=== PATIENT | female | born 1995 | race Caucasian/White ===

== ENCOUNTER 2018-01-22 22:06 | Inpatient (IN) | payer MEDICAID ==
[2018-01-22] MEDS ORDERED: LACTATED RINGER'S 1,000 ML IV (22:42)
[2018-01-22] MEDS ORDERED: OXYTOCIN 30 UNITS/LR 500 ML IV (23:00)
[2018-01-22] MEDS ORDERED: LIDOCAINE 1% (MPF) 30 ML INJ INJ (23:00)
[2018-01-22] MEDS ORDERED: METHYLERGONOVINE 0.2 MG INJ IM (23:00)
[2018-01-22] MEDS ORDERED: BUTORPHANOL 2 MG INJ IV (23:00)
[2018-01-22] MEDS ORDERED: MISOPROSTOL 200 MCG TAB PR (23:00)
[2018-01-22] MEDS ORDERED: CARBOPROST 250 MCG INJ IM (23:00)
[2018-01-22] MEDS: LACTATED RINGER'S 1,000 ML IV (23:24)
[2018-01-22 23:33] LABS: ADD MAN DIFF? NO
[2018-01-22 23:36] LABS: BASOPHILS % 0.4 % (0.0-2.0); EOSINOPHILS # 0.1 10^3/ul (0.0-0.5); HEMATOCRIT 33.7 % (37.0-47.0); HEMOGLOBIN 11.1 g/dl (12.0-16.0); LYMPHOCYTES # 1.8 10^3/ul (0.8-2.9); LYMPHOCYTES % 35.8 % (18.0-55.0); MEAN CORPUSCULAR HGB CONC 32.9 g/dl (32.0-37.0); MEAN CORPUSCULAR VOLUME 72.8 fl (72.0-104.0); MEAN PLATELET VOLUME 11.5 fl (7.4-10.4); MONOCYTE # 0.5 10^3/ul (0.3-0.9); MONOCYTES % 10.1 % (0.0-13.0); NEUTROPHIL # 2.6 10^3/ul (1.6-7.5); NEUTROPHILS % 52.3 % (30.0-74.0); PLATELET COUNT 226 10^3/UL (140-415); RED BLOOD COUNT 4.63 10^6/ul (4.20-5.40); RED CELL DISTRIBUTION WIDTH 17.3 % (11.5-14.5)
[2018-01-22 23:43] LABS: ADD UMIC YES; UR ASCORBIC ACID NEGATIVE (NEGATIVE); UR BILIRUBIN (Dip) NEGATIVE (NEGATIVE); UR BLOOD (Dip) NEGATIVE (NEGATIVE); UR CLARITY CLEAR (CLEAR); UR COLOR STRAW (YELLOW); UR GLUCOSE (Dip) NEGATIVE (NEGATIVE); UR KETONES (Dip) NEGATIVE (NEGATIVE); UR LEUKOCYTE ESTERASE (Dip) TRACE Leu/ul (NEGATIVE); UR NITRITE (Dip) NEGATIVE (NEGATIVE); UR RBC 0 /HPF (0-5); UR SPECIFIC GRAVITY (Dip) 1.013 (1.003-1.030); UR TOTAL PROTEIN (Dip) NEGATIVE (NEGATIVE); UR UROBILINOGEN (Dip) NEGATIVE (NEGATIVE); UR WBC 1 /HPF (0-5)
[2018-01-23] MEDS: AMPICILLIN 2 GM/NS (PMX) 100 ML IV
[2018-01-23 00:25] LABS: PARTIAL THROMBOPLASTIN TIME 29.3 Sec (25.0-35.0)
[2018-01-23 00:26] LABS: HEPATITIS B SURFACE ANTIGEN NEGATIVE (NEGATIVE)
[2018-01-23 00:38] LABS: INR 1.03; PROTIME 13.6 Sec (11.9-14.9); PT RATIO 1.1
[2018-01-23] MEDS ORDERED: FENTAnyl 2MCG/ML-ROPIV 0.2% 100 ML (02:40)
[2018-01-23] MEDS: LACTATED RINGER'S 1,000 ML IV ×4 (02:40→12:41)
[2018-01-23] MEDS: AMPICILLIN 1 GM/NS (PMX) 50 ML IV ×3 (04:28→12:43)
[2018-01-23] MEDS ORDERED: ONDANSETRON 4 MG INJ IV (06:30)
[2018-01-23] MEDS: MINERAL OIL LIGHT 10 ML VIAL TOP (06:30)
[2018-01-23] MEDS ORDERED: DIPHENHYDRAMINE 50 MG INJ IV (06:30)
[2018-01-23] MEDS ORDERED: EPHEDrine SULFATE 50 MG/5 ML SYG IV (06:30)
[2018-01-23] MEDS ORDERED: NALOXONE (0.4 MG/ML) INJ IV (06:30)
[2018-01-23] MEDS: FENTAnyl 2MCG/ML-ROPIV 0.2% 100 ML BAG EPI (12:42)
[2018-01-23] MEDS: OXYTOCIN 30 UNITS/LR 500 ML IV ×2 (14:33→15:02)
[2018-01-23] MEDS: IBUPROFEN 600 MG TAB PO ×3 (16:55→23:57)
[2018-01-23 17:19] LABS: RAPID PLASMA REAGIN NONREACTIVE (NR)
[2018-01-23] MEDS ORDERED: METHYLERGONOVINE 0.2 MG INJ IM (18:00)
[2018-01-23] MEDS ORDERED: HYDROCODONE/APAP (5/325) TAB PO ×2 (18:00)
[2018-01-23] MEDS ORDERED: DIBUCAINE 1% 30 GM OINT PR (18:00)
[2018-01-23] MEDS ORDERED: OXYTOCIN 30 UNITS/LR 500 ML IV (18:00)
[2018-01-23] MEDS ORDERED: CARBOPROST 250 MCG INJ IM (18:00)
[2018-01-23] MEDS ORDERED: ZOLPIDEM 5 MG TAB PO (18:00)
[2018-01-23] MEDS ORDERED: CEPHALEXIN 500 MG CAP PO (18:00)
[2018-01-23] MEDS ORDERED: MISOPROSTOL 200 MCG TAB PR (18:00)
[2018-01-23] MEDS: AMPICILLIN/SULB 3 GM/NS (PMX) 100 ML IVPB ×2 (18:45→23:57)
[2018-01-23] MEDS: WITCH HAZEL/GLYCERIN PAD PR (18:46)
[2018-01-23] MEDS: LANOLIN 7 GM TUBE TOP (18:46)
[2018-01-23] MEDS: BENZOCAINE 20% 56 ML SPRAY TOP (18:46)
[2018-01-23] MEDS: LACTATED RINGER'S 1,000 ML IV* (20:04)
[2018-01-23] MEDS: SENNA/DOCUSATE NA (8.6MG/50MG) TAB PO (21:37)
[2018-01-23] MEDS: MAGNESIUM HYDROXIDE 30ML CUP PO (21:37)
[2018-01-24] MEDS: LACTATED RINGER'S 1,000 ML IV* ×3 (01:42→17:42)
[2018-01-24] MEDS: IBUPROFEN 600 MG TAB PO ×4 (05:39→23:59)
[2018-01-24] MEDS: AMPICILLIN/SULB 3 GM/NS (PMX) 100 ML IVPB ×3 (05:39→17:58)
[2018-01-24] MEDS: MAGNESIUM HYDROXIDE 30ML CUP PO ×2 (09:01→21:15)
[2018-01-24] MEDS: SENNA/DOCUSATE NA (8.6MG/50MG) TAB PO ×2 (09:01→21:15)
[2018-01-24 09:29] LABS: ADD MAN DIFF? NO
[2018-01-24 09:34] LABS: BASOPHILS % 0.2 % (0.0-2.0); EOSINOPHILS # 0.1 10^3/ul (0.0-0.5); EOSINOPHILS % 0.7 % (0.0-7.0); HEMATOCRIT 27.8 % (37.0-47.0); HEMOGLOBIN 8.9 g/dl (12.0-16.0); LYMPHOCYTES # 1.7 10^3/ul (0.8-2.9); LYMPHOCYTES % 18.3 % (18.0-55.0); MEAN CORPUSCULAR HEMOGLOBIN 24.1 pg (29.0-33.0); MEAN CORPUSCULAR VOLUME 75.1 fl (72.0-104.0); MEAN PLATELET VOLUME 11.9 fl (7.4-10.4); MONOCYTE # 0.8 10^3/ul (0.3-0.9); MONOCYTES % 8.5 % (0.0-13.0); NEUTROPHIL # 6.8 10^3/ul (1.6-7.5); PLATELET COUNT 188 10^3/UL (140-415); RED CELL DISTRIBUTION WIDTH 17.8 % (11.5-14.5)
[2018-01-24 09:34] LABS: WHITE BLOOD COUNT 9.4 10^3/ul (4.8-10.8)
[2018-01-25] MEDS: LACTATED RINGER'S 1,000 ML IV* ×2 (01:42→09:42)
[2018-01-25] MEDS: IBUPROFEN 600 MG TAB PO ×2 (06:04→12:24)
[2018-01-25] MEDS: AMPICILLIN/SULB 3 GM/NS (PMX) 100 ML IVPB ×3 (06:05→12:00)
[2018-01-25] MEDS: MEASLES,MUMPS,RUBELLA VACCINE INJ SC* (09:00)
[2018-01-25] MEDS: MAGNESIUM HYDROXIDE 30ML CUP PO (09:00)
[2018-01-25] MEDS: VARICELLA VACCINE LIVE/PF 1,350 UNIT/0.5 ML ML SC* (09:16)
[2018-01-25] MEDS: DIPHTH/TET/ACEL PERTUSS (ADULT) 0.5 ML VIAL IM* (09:16)
[2018-01-25] MEDS: SENNA/DOCUSATE NA (8.6MG/50MG) TAB PO (09:17)
== END 2018-01-25 15:20 | disposition home or self-care (01) | DRG 775 ==
LOC: OBT 22:06 → PP1 01-23 18:16 → L-D 22:07 → OBT 22:34 → L-D 22:34
PROC: 10E0XZZ Delivery of Products of Conception, External Approach (ICD-10-PCS; principal; 2018-01-23)
PROC: 0HQ9XZZ Repair Perineum Skin, External Approach (ICD-10-PCS; 2018-01-23)
DX: O99.214 Obesity complicating childbirth (principal); E66.9 Obesity, unspecified; O71.4 Obstetric high vaginal laceration alone; Z3A.39 39 weeks gestation of pregnancy; Z37.0 Single live birth; Z68.35 Body mass index [BMI] 35.0-35.9, adult
CPT/HCPCS: 62319; 76815; 81001; 85025; 85610; 85730; 86592; 86850; 86900; 86901; 87040; 87086; 87340; 99464